=== PATIENT | male | born 1960 | race Caucasian/White ===

== ENCOUNTER → 2021-03-23 | Outpatient (CLI) | payer BC ==
--- NOTE | 2021-03-23 08:30 | US ---
EXAMINATION TYPE: US abdomen limited DATE OF EXAM: 03/23/2021 COMPARISON: NONE CLINICAL HISTORY: R1011 RUQ PAIN,[id number] ABNORMAL LIVER FUNCTION RESULTS. elevated bilirubin EXAM MEASUREMENTS: Liver Length: 16.3 cm Gallbladder Wall: 0.2 cm CBD: 0.3 cm Right Kidney: 12.4 x 4.6 x 5.1 cm Pancreas: Obscured by bowel gas Liver: Heterogeneous and geographic in appearance. Gallbladder: no evidence of stones Evidence for sonographic Liang's sign: no CBD: appears wnl Right Kidney: no evidence of hydronephrosis IMPRESSION: The liver is heterogeneous and geographic in appearance. While this may simply represent hepatic stea tosis with areas of focal fatty sparing, underlying infiltrative lesion cannot be excluded. MRI abdom en with and without contrast may be helpful for further evaluation.
== END | disposition home or self-care (01) ==
LOC: RADUSWWP 07:38
PROVIDERS: ATTEND Family Medicine
DX: R10.11 Right upper quadrant pain (principal); R94.5 Abnormal results of liver function studies
CPT/HCPCS: 76705

== ENCOUNTER → 2023-04-10 | Outpatient (CLI) | payer BC ==
--- NOTE | 2023-04-10 11:27 | XR ---
EXAMINATION TYPE: XR wrist complete LT DATE OF EXAM: 04/10/2023 COMPARISON: NONE HISTORY: Pain TECHNIQUE: Four views submitted. FINDINGS: The osseous structures are intact. The joint spaces are preserved and there is no acute fracture or dislocation. Chronic deformity of the ulnar styloid. There is hypertrophic arthropathy of the first MCP. Chronic deformity fifth metacarpal suggests remote trauma. There is narrowing of the MCP joints of the first through fifth digits. No erosive changes. IMPRESSION: 1. No acute osseous abnormality. There is a remote displaced ulnar styloid fracture. If concern for ligamentous injury consider MRI of the wrist.
== END | disposition home or self-care (01) ==
LOC: RADXRYALE 11:11
PROVIDERS: ATTEND Physician Assistant
DX: S52.612A Displaced fracture of left ulna styloid process, initial encounter for closed fracture (principal); X58.XXXA Exposure to other specified factors, initial encounter